=== PATIENT | male | born 1960 | race Caucasian/White ===

== ENCOUNTER 2017-12-17 20:15 | Emergency (ER) | payer OTHER ==
[2017-12-17] MEDS ORDERED: NS 1,000 ML IV ONE (20:38)
--- NOTE | 2017-12-17 20:41 | EDPHY ---
H & P Stated Complaint: light headed Time Seen by Provider: 12/17/17 20:25 HPI/ROS: CHIEF COMPLAINT: Syncope HISTORY OF PRESENT ILLNESS: Patient is a 57-year-old man with a history of hypertension. His blood pressure medication was increased in September and since that time he has noticed lightheadedness particularly when he stands up abruptly. He states however that his blood pressure overall as much much better controlled. Today he stood up quickly and felt lightheaded and fell to the ground. He denies loss of consciousness. He has a small abrasion to his forehead. He denies headache or neck pain. He denies chest pain or shortness of breath during the episode. He denies palpitations. No leg pain or swelling. His took his blood pressure at home and states that it was 88/ 55. He did not have any seizure-like activity. He is normotensive here in the emergency department. He does have a minor abrasion to his forehead. He denies headache or neck pain. Patient does state that he has been slightly dehydrated today. He also had 2 gin and tonics earlier this evening. REVIEW OF SYSTEMS: Constitutional: denies: chills, fever, recent illness, recent injury EENTM: denies: blurred vision, double vision, nose congestion Respiratory: denies: cough, shortness of breath Cardiac: See HPI Gastrointestinal/Abdominal: denies: abdominal pain, diarrhea, nausea, vomiting, blood streaked stools Genitourinary: denies: dysuria, frequency, hematuria, pain Musculoskeletal: denies: joint pain, muscle pain Skin: denies: lesions, rash, jaundice, bruising Neurological: denies: headache, numbness, paresthesia, tingling, dizziness, weakness Hematologic/Lymphatic: denies: blood clots, easy bleeding, easy bruising Immunologic/allergic: denies: HIV/AIDS, transplant EXAM: GENERAL: Well-appearing, well-nourished and in no acute distress. HEAD: Atraumatic, normocephalic. EYES: Pupils equal round and reactive to light, extraocular movements intact, sclera anicteric, conjunctiva are normal. ENT: TMs normal, nares patent, oropharynx clear without exudates. Moist mucous membranes. NECK: Normal range of motion, supple without lymphadenopathy or JVD. LUNGS: Breath sounds clear to auscultation bilaterally and equal. No wheezes rales or rhonchi. HEART: Regular rate and rhythm without murmurs, rubs or gallops. ABDOMEN: Soft, nontender, normoactive bowel sounds. No guarding, no rebound. No masses appreciated. BACK: No CVA tenderness, no spinal tenderness, step-offs or deformities EXTREMITIES: Normal range of motion, no pitting or edema. No clubbing or cyanosis. NEUROLOGICAL: Cranial nerves II through XII grossly intact. Normal speech, normal gait. 5/5 strength, normal movement in all extremities, normal sensation PSYCH: Normal mood, normal affect. SKIN: Minor abrasion right forehead Source: Patient Exam Limitations: No limitations - Personal History Current Tetanus/Diphtheria Vaccine: Yes Current Tetanus Diphtheria and Acellular Pertussis (TDAP): Yes - Medical/Surgical History Hx Asthma: No Hx Chronic Respiratory Disease: No Hx Diabetes: No Hx Cardiac Disease: No Hx Renal Disease: No Hx Cirrhosis: No Hx Alcoholism: No Hx HIV/AIDS: No Hx Splenectomy or Spleen Trauma: No Other PMH: Hypertension, corneal transplant - Family History Significant Family History: No pertinent family hx - Social History Smoking Status: Never smoked Alcohol Use: Sober Drug Use: None Constitutional: Initial Vital Signs Temperature (C) 36.9 C 12/17/17 20:29 Heart Rate 76 12/17/17 20:29 Respiratory Rate 20 12/17/17 20:29 Blood Pressure 114/71 12/17/17 20:29 O2 Sat (%) 94 12/17/17 20:29 O2 Delivery Mode Room Air Allergies/Adverse Reactions: No Known Allergies Allergy (Verified 12/17/17 20:26) Home Medications: Medication Instructions Recorded Amlodipine Besylate 12/17/17 Aspirin 81mg (*) 12/17/17 Claritin 12/17/17 Hydrochlorothiazide 12/17/17 Omeprazole 12/17/17 Medical Decision Making - Diagnostics EKG Interpretation: An EKG obtained and was read and documented in trace view. Please see trace view for full reading and report. Sinus rhythm, nonspecific interventricular conduction delay, similar to right bundle branch block seen on previous EKG. no acute ischemic changes Imaging Results: Imaging Impressions Chest/Thorax CTA 12/17/17 21:31 Impression: 1. No evidence of thrombopulmonary embolic disease. 2. Clear lungs except for minimal bibasilar atelectasis. Findings discussed with Emergency Department physician, MARIANN RICKS at 22:29. Imaging: Discussed imaging studies w/ inbound call center agent Radiologist ED Course/Re-evaluation: 10:45 p.m. We had a long discussion about the patient's lab work and imaging results and EKG. I recommended admission to the hospital for further monitoring and possibly Doppler of the patient's carotids and echocardiogram. The patient has had an echocardiogram performed by his pick up attendant Dr. Patrick Pantoja. He was told that it was normal. I was able to compare his EKG to an old from the cardiology visits. He had a right bundle branch block in that EKG. Today's EKG shows nonspecific QRS widening. Primarily I offered admission because he was hypotensive at home although his triage blood pressure here was normal and he has been normal throughout his stay. No arrhythmias found during his time here on the monitor. Patient and family considered risks and we engaged in shared decision making and ultimately the patient and his elected to return home and complete the workup as an outpatient. Part of that decision had to do with the hospital being full and having to board in the emergency department overnight. We did offer to transfer to an outside hospital but they declined this because all their physicians are at [facility]. I advised them strictly to return if he develops any pain or shortness of breath develops hypotension or faints again. Patient and understand and agree. The patient's is a nurse. I did offer to obtain imaging of the patient's head neck but he declined. Differential Diagnosis: Partial list of the Differential diagnosis considered include but were not limited to; syncope, medication effect, presyncope, dehydration, arrhythmia, carotid artery stenosis, and although unlikely based on the history and physical exam, I also considered CHF, PE, dissection, aneurysm. I discussed these differential diagnoses and the plan with the patient as well as the usual and expected course. The patient understands that the diagnosis is provisional and that in medicine we are not always correct and that further workup is often warranted. Usual and customary warnings were given. All of the patient's questions were answered. The patient was instructed to return to the emergency department should the symptoms at all worsen or return, otherwise to followup with the physician as we discussed. - Data Points Laboratory Results: Laboratory Results 12/17/17 20:54 12/17/17 20:54 12/17/17 12/17/17 12/17/17 21:00 21:00 20:54 WBC RBC Hgb Hct MCV MCH MCHC RDW Plt Count MPV Neut % (Auto) Lymph % (Auto) Person % (Auto) Eos % (Auto) Baso % (Auto) Nucleat RBC Rel Count Absolute Neuts (auto) Absolute Lymphs (auto) Absolute Monos (auto) Absolute Eos (auto) Absolute Basos (auto) Absolute Nucleated RBC Immature Gran % Immature Gran # D-Dimer 2.85 ug/mLFEU H ug/mLFEU (0.00-0.50) Sodium 141 mEq/L mEq/L (135-145) Potassium 4.5 mEq/L mEq/L (3.5-5.2) Chloride 102 mEq/L mEq/L (97-110) Carbon Dioxide 21 mEq/l L mEq/l (22-31) Anion Gap 18 mEq/L H mEq/L (8-16) BUN 37 mg/dL H mg/dL (7-23) Creatinine 1.1 mg/dL mg/dL (0.7-1.3) Estimated GFR > 60 Glucose 101 mg/dL H mg/dL (70-100) Calcium 9.1 mg/dL mg/dL (8.5-10.4) Troponin I < 0.012 ng/mL ng/mL (0.000-0.034) Ethyl Alcohol < 10 mg/dL mg/dL (0-10) 12/17/17 20:54 WBC 5.85 10^3/uL 10^3/uL (3.80-9.50) RBC 4.92 10^6/uL 10^6/uL (4.40-6.38) Hgb 14.6 g/dL g/dL (13.7-17.5) Hct 41.8 % % (40.0-51.0) MCV 85.0 fL fL (81.5-99.8) MCH 29.7 pg pg (27.9-34.1) MCHC 34.9 g/dL g/dL (32.4-36.7) RDW 13.2 % % (11.5-15.2) Plt Count 257 10^3/uL 10^3/uL (150-400) MPV 9.0 fL fL (8.7-11.7) Neut % (Auto) 43.5 % % (39.3-74.2) Lymph % (Auto) 43.2 % % (15.0-45.0) Person % (Auto) 11.6 % % (4.5-13.0) Eos % (Auto) 1.2 % % (0.6-7.6) Baso % (Auto) 0.3 % % (0.3-1.7) Nucleat RBC Rel Count 0.0 % % (0.0-0.2) Absolute Neuts (auto) 2.54 10^3/uL 10^3/uL (1.70-6.50) Absolute Lymphs (auto) 2.53 10^3/uL 10^3/uL (1.00-3.00) Absolute Monos (auto) 0.68 10^3/uL 10^3/uL (0.30-0.80) Absolute Eos (auto) 0.07 10^3/uL 10^3/uL (0.03-0.40) Absolute Basos (auto) 0.02 10^3/uL 10^3/uL (0.02-0.10) Absolute Nucleated RBC 0.00 10^3/uL 10^3/uL (0-0.01) Immature Gran % 0.2 % % (0.0-1.1) Immature Gran # 0.01 10^3/uL 10^3/uL (0.00-0.10) D-Dimer Sodium Potassium Chloride Carbon Dioxide Anion Gap BUN Creatinine Estimated GFR Glucose Calcium Troponin I Ethyl Alcohol Medications Given: Discontinued Medications Sodium Chloride (Ns) 1,000 mls @ 0 mls/hr IV EDNOW ONE; Wide Open PRN Reason: Protocol Stop: 12/17/17 20:39 Last Admin: 12/17/17 20:58 Dose: 1,000 mls Departure - Departure Disposition: Home, Routine, Self-Care Clinical Impression: Syncope Qualifiers: Syncope type: unspecified Qualified Code(s): R55 - Syncope and collapse Condition: Fair Instructions: Syncope (ED) Referrals: Frank Duarte MD [Primary Care Provider] - As per Instructions Patrick Pantoja MD [Medical Doctor] - As per Instructions
--- NOTE | 2017-12-17 20:45 | CPEKG ---
Heart Rate: 71 RR Interval: 845 P-R Interval: 176 QRSD Interval: 112 QT Interval: 396 QTC Interval: 431 P [place]: 52 QRS [place]: -6 T Wave [place]: 33 EKG Severity - ABNORMAL ECG - EKG Impression: SINUS RHYTHM EKG Impression: PROBABLE LEFT ATRIAL ABNORMALITY EKG Impression: NONSPECIFIC INTRAVENTRICULAR CONDUCTION DELAY Electronically Signed By: Mehdi Wallace 17-Dec-2017 20:48:29
[2017-12-17 21:05] LABS: PLATELET COUNT 257 10^3/uL (150-400)
[2017-12-17] MEDS ORDERED: IOPAMIDOL (ISOVUE 370) 100 ML BTL IV ONE (21:45)
[2017-12-17 22:17] VITALS: RESP 16
[2017-12-17 23:05] VITALS: BP 126/83; PULSE 68; TEMP 98.1; O2SAT 96
== END 2017-12-17 23:04 | disposition home or self-care (01) ==
LOC: CED 20:15
DX: R55 Syncope and collapse (principal); I10 Essential (primary) hypertension; E86.9 Volume depletion, unspecified; Z79.82 Long term (current) use of aspirin
CPT/HCPCS: 71275-PO; 80048-PO; 84484-PO; 85025-PO; 85378-PO; G0480; Q9967

== ENCOUNTER → 2017-12-29 | Outpatient (CLI) | payer OTHER | LOC: FIMAGING 14:26 | PROVIDERS: ATTEND Internal Medicine Cardiovascular Disease | DX: Z13.6 Encounter for screening for cardiovascular disorders (principal); I10 Essential (primary) hypertension ==